=== PATIENT | male | born 2000 | race Caucasian/White ===

== ENCOUNTER 2021-09-04 16:01 | Emergency (ER) | payer OTHER, SELFPAY | END 2021-09-04 16:37 | disposition home or self-care (01) | LOC: NAV ERS 16:01 | DX: R10.84 Generalized abdominal pain (principal); F17.290 Nicotine dependence, other tobacco product, uncomplicated | CPT/HCPCS: 99281 ==

== ENCOUNTER 2021-10-29 16:43 | Emergency (ER) | payer OTHER | END 2021-10-29 17:25 | disposition home or self-care (01) | LOC: NAV ERS 16:43 | DX: R11.2 Nausea with vomiting, unspecified (principal); F17.290 Nicotine dependence, other tobacco product, uncomplicated | CPT/HCPCS: 99283 ==

== ENCOUNTER 2021-12-22 16:13 | Emergency (ER) | payer BC, OTHER, SELFPAY | END 2021-12-22 16:46 | disposition home or self-care (01) | LOC: NAV ERS 16:13 | DX: B35.6 Tinea cruris (principal); J45.909 Unspecified asthma, uncomplicated; F17.290 Nicotine dependence, other tobacco product, uncomplicated | CPT/HCPCS: 99282 ==